=== PATIENT | male | born 1945 | race Caucasian/White ===

== ENCOUNTER → 2016-06-03 | Outpatient (CLI) | payer OTHER, BC ==
[~2016-06-03] MED LIST: ALL100 PO; ASPI-461 PO; CARB0.01; FINA5TAB PO; FLUT0.0529 NAE; KETO2CRE14 TOP; MISCCAP80; OMEGCAP2 PO; POLYDRO EX; SIMV20TA2 PO; TAMS0.4C59 PO; ZNTT/150 PO; [UNRECOGNIZED DRUG - OTHER] PO
[2016-06-03 11:28] LABS: ALT/SGPT 37 U/L (12-78); BLOOD UREA NITROGEN 22 mg/dl (7-18); BUN/CREATININE RATIO 16.6 (10-20); CALCIUM 9.2 mg/dl (8.5-10.1); CARBON DIOXIDE 30 mmol/L (21-32); CHLORIDE 106 mmol/L (98-107); CHOLESTEROL 103 mg/dl (0-200); GLUCOSE 101 mg/dl (70-99); SODIUM 141 mmol/L (136-145)
[2016-06-03 11:32] LABS: ALKALINE PHOSPHATASE 69 U/L (45-117); AST/SGOT 27 U/L (15-37); CHOLESTEROL/HDL RATIO 2.2; HDL CHOLESTEROL 46 mg/dl; LDL CHOLESTEROL CALCULATED 33 mg/dl; TRIGLYCERIDES 118 mg/dl (0-150); VERY LOW DENSITY LIPOPROT CALC 24 mg/dl
== END | disposition home or self-care (01) ==
LOC: C.LABBC 08:59
PROVIDERS: ATTEND Urology
DX: E78.5 Hyperlipidemia, unspecified (principal); K76.0 Fatty (change of) liver, not elsewhere classified; I10 Essential (primary) hypertension; N40.1 Benign prostatic hyperplasia with lower urinary tract symptoms

== ENCOUNTER → 2016-06-10 | Outpatient (CLI) | payer OTHER, BC ==
[2016-06-10 15:51] LABS: BASO % 0.2 %; BASO ABS # 0.01 K/uL (0-0.2); COMPLETE YES; EOS % 0.9 %; HEMATOCRIT 48.9 % (42-52); IG% 0.2 %; LYMPH % 19.4 %; LYMPH ABS # 1.11 K/uL (1.2-3.4); MEAN CELL VOLUME 91.7 fL (80-100); MEAN CORPUSCULAR HGB CONC 33.7 g/dl (32-36); MONO % 9.9 %; NEUT % 69.4 %; PLATELET COUNT 175 K/uL (130-400); RED BLOOD COUNT 5.33 M/uL (4.7-6.1); WHITE BLOOD COUNT 5.73 K/uL (4.8-10.8)
== END | disposition home or self-care (01) ==
LOC: C.LAB1850 14:11
PROVIDERS: ATTEND Internal Medicine
DX: D58.2 Other hemoglobinopathies (principal)

== ENCOUNTER → 2017-02-05 | Outpatient (CLI) | payer OTHER, BC ==
[2017-02-05 13:33] LABS: HEMATOCRIT 50.3 % (42-52); MEAN CELL VOLUME 93.5 fL (80-100); MEAN CORPUSCULAR HEMOGLOBIN 31.6 pg (25-34); MEAN CORPUSCULAR HGB CONC 33.8 g/dl (32-36); MEAN PLATELET VOLUME 10.3 fL (7.4-10.4); PLATELET COUNT 137 K/uL (130-400); RED BLOOD COUNT 5.38 M/uL (4.7-6.1); WHITE BLOOD COUNT 5.26 K/uL (4.8-10.8)
[2017-02-05 14:01] LABS: ALT/SGPT 39 U/L (12-78); AST/SGOT 25 U/L (15-37); BLOOD UREA NITROGEN 17 mg/dl (7-18); CALCIUM 8.8 mg/dl (8.5-10.1); CARBON DIOXIDE 29 mmol/L (21-32); CHLORIDE 106 mmol/L (98-107); CREATININE 1.19 mg/dl (0.60-1.40); GLUCOSE 90 mg/dl (70-99); POTASSIUM 4.1 mmol/L (3.5-5.1); SODIUM 137 mmol/L (136-145)
[2017-02-05 14:07] LABS: ALB/GLOB RATIO 1.3 (0.9-2); ALKALINE PHOSPHATASE 59 U/L (45-117); CHOLESTEROL 107 mg/dl (0-200); CHOLESTEROL/HDL RATIO 2.3; HDL CHOLESTEROL 47 mg/dl; LDL CHOLESTEROL CALCULATED 29 mg/dl; TRIGLYCERIDES 153 mg/dl (0-150); VERY LOW DENSITY LIPOPROT CALC 31 mg/dl
[2017-02-05 15:38] LABS: LYME DISEASE AB IGG NEG (NEG); LYME DISEASE AB IGM NEG (NEG)
[2017-02-06 06:40] LABS: ESTIMATED AVERAGE GLUCOSE 103 mg/dl; HA1C FLAG Normal (Normal)
== END | disposition home or self-care (01) ==
LOC: C.LABBC 10:13
PROVIDERS: ATTEND Nurse Practitioner Adult Health
DX: E78.5 Hyperlipidemia, unspecified (principal); K76.0 Fatty (change of) liver, not elsewhere classified; S30.861A Insect bite (nonvenomous) of abdominal wall, initial encounter; W57.XXXA Bitten or stung by nonvenomous insect and other nonvenomous arthropods, initial encounter

== ENCOUNTER → 2017-06-22 | Outpatient (CLI) | payer OTHER, BC ==
[~2017-06-22] MED LIST changes: +RANI150T85 PO; -ZNTT/150 PO
== END | disposition home or self-care (01) ==
LOC: C.LABBC 10:13
PROVIDERS: ATTEND Urology
DX: N40.1 Benign prostatic hyperplasia with lower urinary tract symptoms (principal)

== ENCOUNTER → 2017-06-29 | Outpatient (CLI) | payer OTHER, BC ==
[2017-06-29 10:48] LABS: HEMATOCRIT 51.8 % (42-52); HEMOGLOBIN 17.6 g/dL (14.0-18.0); MEAN CELL VOLUME 90.7 fL (80-100); MEAN CORPUSCULAR HEMOGLOBIN 30.8 pg (25-34); MEAN PLATELET VOLUME 10.7 fL (7.4-10.4); PLATELET COUNT 152 K/uL (130-400); RED CELL DISTRIBUTION WIDTH CV 13.9 % (11.5-14.5); RED CELL DISTRIBUTION WIDTH SD 45.9 fL (36.4-46.3); WHITE BLOOD COUNT 5.14 K/uL (4.8-10.8)
[2017-06-29 11:11] LABS: HEMOGLOBIN A1C 5.3 % (4.5-5.6)
[2017-06-29 11:14] LABS: ALBUMIN 4.2 gm/dl (3.4-5.0); ALKALINE PHOSPHATASE 57 U/L (45-117); ALT/SGPT 40 U/L (12-78); AST/SGOT 25 U/L (15-37); BLOOD UREA NITROGEN 17 mg/dl (7-18); CALCIUM 9.3 mg/dl (8.5-10.1); CARBON DIOXIDE 27 mmol/L (21-32); CHOLESTEROL 103 mg/dl (0-200); CREATININE 1.28 mg/dl (0.60-1.40); GLUCOSE 100 mg/dl (70-99); LDL CHOLESTEROL CALCULATED 30 mg/dl; POTASSIUM 4.1 mmol/L (3.5-5.1); SODIUM 139 mmol/L (136-145); TOTAL PROTEIN 7.5 gm/dl (6.4-8.2)
== END | disposition home or self-care (01) ==
LOC: C.LABBC 08:50
PROVIDERS: ATTEND Internal Medicine
DX: E78.5 Hyperlipidemia, unspecified (principal); R73.01 Impaired fasting glucose; K76.0 Fatty (change of) liver, not elsewhere classified; W57.XXXA Bitten or stung by nonvenomous insect and other nonvenomous arthropods, initial encounter